=== PATIENT | male | born 1990 | race Hispanic/Latino ===

== ENCOUNTER 2016-02-15 19:42 | Emergency (ER) | payer BC ==
[2016-02-15 19:54] VITALS: BP 120/80
[2016-02-15] MEDS ORDERED: AZITHROMYCIN 250 MG TABLET PO ONE (20:24)
[2016-02-15] MEDS ORDERED: AZITHROMYCIN 250 MG TABLET ONE (20:26)
--- NOTE | 2016-02-15 20:26 | ERNOTE ---
Date of Service: 02/15/16 Time Seen by Provider: 02/15/16 20:07 Stated Complaint: COUGH WITH CHEST PAIN / HEADACHES Presenting Symptoms:: cough, sore throat, runny nose Source: patient Immunizations: IMMUNIZATION HX Immunizations Up to Date Yes History of Influenza Vaccine Yes Allergies/Adverse Reactions: Allergies No Known Allergies Allergy (Verified 02/15/16 19:54) Home Medications: HOME MEDICATIONS Clarithromycin [Biaxin] 500 mg PO BID #20 tablet 02/15/16 [Last Taken Unknown] - History of Present Ilness Narrative: Has been sick since Thursday. Sinus pressure, bleeding from left nostril. Earaches. Cough, chest tightness, myalgias. Has been taking some penicillin that he got from [place] but it ran out yesterday. Date (Duration): 02/09/16 Timing: getting worse Severity: moderate Frequency/Possible Cause: Reports: no prior episodes Modifying Factors - Improves: Reports: nothing Modifying Factors - Worsens: Reports: activity, deep breath Associated Symptoms: Reports: chest pain/soreness, cough, facial pain, nasal congestion, earache, sore throat, muscle aches Prior Treatment: Denies: treated by physician Review of Systems - Review of Systems EYE: Present: no symptoms reported ENT: Present: ear pain, nose congestion, nasal drainage, sore throat. Absent: ear discharge Respiratory: Present: shortness of breath, cough Gastrointestinal/Abdominal: Absent: nausea, vomiting Genitourinary: Present: no symptoms reported Musculoskeletal: Present: muscle pain, muscle stiffness. Absent: neck pain, joint swelling Skin: Absent: rash, lesions Psych: Present: no symptoms reported - Patient's Past Medical History Patient History - Medical: No pertinent hx Patient History - Cardiac/Respiratory: No pertinent hx Patient History - Cancer: No Hx of Cancer Patient History - Surgical Procedures: No surgical history - Social History Living Situations: home Smoking Status: Never smoker Alcohol Use: none Drug Use: none Physical Exam - Physical Exam General Appearance: Present: wd/wn, alert, no apparent distress Eye Exam: Normal inspection: bilateral, PERRL: bilateral, EOMI: bilateral Ears, Nose, Throat: Present: hearing grossly normal, nasal congestion, sinus pain/drainage, normal pharynx. Absent: abnormal TM (R), abnormal TM (L), pharyngeal erythema, pharyngeal swelling, tonsillar exudate Neck: Present: normal inspection, nontender, supple Respiratory: Present: no respiratory distress, no accessory muscle use, chest tenderness, wheezing - few scattered Skin Exam: Present: normal color, warm/dry ED Progress - Vital Signs Patient's Vital Signs:: I have reviewed the patient's vital signs. Vital Signs: Vital Signs 02/15/16 19:51 Temperature 36.8 C Pulse Rate 92 Respiratory 20 Rate Blood Pressure 120/80 O2 Sat by Pulse 98 Oximetry - Progress/Reassessment Chief Complaint: Upper Respiratory Symptoms Plan - Plan Plan: Home, Stop smoking. Biaxin 500 mg bid. Departure - Departure Clinical Impression: Sinusitis, acute, Bronchitis Disposition: Home self-care Condition: Good Instructions: Sinusitis, Adult, [id number], Form - Excuse from Work, School, or Physical Activity Prescriptions: Clarithromycin [Biaxin] 500 mg PO BID #20 tablet
== END 2016-02-15 20:29 | disposition home or self-care (01) ==
LOC: ER 19:42
DX: J01.90 Acute sinusitis, unspecified (principal); J40 Bronchitis, not specified as acute or chronic